=== PATIENT | female | born 1955 | race Caucasian/White ===

== ENCOUNTER 2021-08-06 18:35 | Emergency (ER) | payer MEDICAID ==
[2021-08-06 19:06] LABS: BASOPHILS % (AUTO) 0.4 %; EOSINOPHILS # (AUTO) 0.2 10^3/uL (0.0-0.7); EOSINOPHILS % (AUTO) 2.2 %; HCT - HEMATOCRIT 46.2 % (37.0-47.0); HGB - HEMOGLOBIN 15.4 g/dL (12.0-16.0); LYMPHOCYTES # (AUTO) 2.8 10^3/uL (1.5-3.5); LYMPHOCYTES % (AUTO) 26.5 %; MEAN CORPUSCULAR HEMOGLOBIN 29.3 pg (27.0-31.0); MEAN CORPUSCULAR HGB CONC 33.3 g/dL (32.0-36.0); MEAN PLATELET VOLUME 10.3 fL (7.9-10.8); MONOCYTES # (AUTO) 0.7 10^3/uL (0.0-1.0); MONOCYTES % (AUTO) 6.8 %; NEUTROPHILS # (AUTO) 6.8 10^3/uL (1.5-6.6); NEUTROPHILS % (AUTO) 63.9 %; PLT - PLATELET COUNT 273 10^3/uL (130-450); RED BLOOD COUNT 5.25 10^6/uL (4.20-5.40); RED CELL DISTRIBUTION WIDTH 12.6 % (12.0-15.0); WHITE BLOOD COUNT 10.6 x10^3/uL (4.8-10.8)
[2021-08-06 19:14] LABS: PT - PROTHROMBIN TIME 10.9 secs (9.9-12.6)
[2021-08-06 19:25] LABS: ALBUMIN 4.4 g/dL (3.2-5.5); ALBUMIN/GLOBULIN RATIO 1.3 (1.0-2.2); BILIRUBIN,TOTAL 0.7 mg/dL (0.2-1.0); CALCIUM 9.6 mg/dL (8.5-10.3); CREATININE 0.7 mg/dL (0.4-1.0); POTASSIUM 3.4 mmol/L (3.5-5.0); TOTAL PROTEIN 7.7 g/dL (6.7-8.2)
[2021-08-06] MEDS ORDERED: lisinopriL 5 MG TABLET PO STA (19:28)
--- NOTE | 2021-08-06 19:35 | ED Physician Documentation ---
History of Present Illness - Stated complaint Stated Complaint: HIGH BP, RIGHT LEG PX - Chief complaint Chief Complaint: Ext Problem - Additonal information Additional information: 66-year-old female was referred to the emergency department for evaluation of 5 days right posterior knee and thigh pain. 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 She denies any history of DVT or thrombus in the past. She is not anticoagulated. She reports that she has a history of hypertension but has not taking any meds for about 5 years due to the of her and transition in insurance. She denies chest pain or shortness of air. She is interested in "getting her health on track" Review of Systems Constitutional: denies: Fever, Chills Eyes: reports: Reviewed and negative Nose: reports: Reviewed and negative Throat: reports: Reviewed and negative Cardiac: denies: Chest pain / pressure, Palpitations Respiratory: reports: Reviewed and negative GI: reports: Reviewed and negative : reports: Reviewed and negative Musculoskeletal: reports: Extremity pain PD PAST MEDICAL HISTORY - Past Medical History Cardiovascular: Hypertension Respiratory: None Derm: None - Present Medications Home Medications: Ambulatory Orders Medication Instructions Recorded Confirmed Ibuprofen [Motrin] 600 mg PO Q6H PRN #30 tab 08/06/21 Lisinopril [Zestril] 10 mg PO DAILY #30 tablet 08/06/21 - Allergies Allergies/Adverse Reactions: Allergies Allergy/AdvReac Type Severity Reaction Status Date / Time Penicillins Allergy Unknown Verified 08/06/21 18:47 - Social History Does the pt smoke?: No Smoking Status: Never smoker Does the pt have substance abuse?: No - Immunizations Immunizations are current?: No - POLST Patient has POLST: No PD ED PE EXPANDED - General General: Alert, No acute distress - Cardiac Cardiac: Regular Rate, Radial strong equal, Pedal strong equal, Cap refill < 2 sec. No: Murmur Present - Respiratory Respiratory: Clear to ausultation sherita. No: Distress, Labored - Abdomen Abdomen: Normal Bowel sounds. No: Tender to palpation - Extremities Extremities: Right leg (Tenderness behind the knee without swelling or erythema. Tenderness of the posterior thigh. No calf pain. No lower extremity swelling. 2+ DP pulse. Antalgic gait) Results - Vitals Vitals: Vital Signs - 24 hr 08/06/21 08/06/21 18:41 19:18 Temperature 36.8 C Heart Rate 90 Respiratory 16 20 Rate Blood Pressure 216/125 H 179/83 H O2 Saturation 97 Oxygen O2 Source Room air - Labs Labs: Laboratory Tests 08/06/21 08/06/21 08/06/21 19:00 19:00 19:00 WBC 10.6 RBC 5.25 Hgb 15.4 Hct 46.2 MCV 88.0 MCH 29.3 MCHC 33.3 RDW 12.6 Plt Count 273 MPV 10.3 Neut # (Auto) 6.8 H Lymph # (Auto) 2.8 Hernando # (Auto) 0.7 Eos # (Auto) 0.2 Baso # (Auto) 0.0 Absolute Nucleated RBC 0.00 Nucleated RBC % 0.0 PT 10.9 INR 1.0 Sodium 140 Potassium 3.4 L Chloride 101 Carbon Dioxide 27 Anion Gap 12.0 BUN 18 Creatinine 0.7 Estimated GFR (MDRD) 84 L Glucose 102 H Calcium 9.6 Total Bilirubin 0.7 AST 31 ALT 54 Alkaline Phosphatase 45 Total Protein 7.7 Albumin 4.4 Globulin 3.3 Albumin/Globulin Ratio 1.3 Lipase 32 - Rads (name of study) US DVT Radiology: Final report received (No deep vein thrombosis seen) PD MEDICAL DECISION MAKING - ED course Complexity details: reviewed results, re-evaluated patient, considered differential, d/w patient ED course: 66-year-old female sent to the emergency department for evaluation of right posterior knee and thigh pain in the setting of extensive varicosities. She is here to rule out a DVT. She was also sent for evaluation of hypertension. She has not been on blood pressure medications for about 5 years. Screening labs were unremarkable. Ultrasound DVT was negative she did have pain relief using ibuprofen. She presented markedly hypertensive with a systolic greater than 200. She did receive 10 mg of lisinopril and her blood pressure is 179. She has preserved renal function. She is scheduled to establish with a primary care doctor on 03 September. I will start her on lisinopril until then. Advised as needed ibuprofen for the leg pain. Emergent return precautions were otherwise discussed Departure - Departure Disposition: Home, Self Care Clinical Impression: Right leg pain Hypertension Qualifiers: Hypertension type: unspecified Qualified Code(s): I10 - Essential (primary) hypertension Condition: Stable Record reviewed to determine appropriate education?: Yes Prescriptions: Ibuprofen [Motrin] 600 mg PO Q6H PRN #30 tab PRN Reason: Pain Lisinopril [Zestril] 10 mg PO DAILY #30 tablet Comments: Linda you are seen today in the emergency department for pain behind your right thigh and knee. The ultrasound did not show any blood clots. Your screening labs were checked and your blood counts and kidney function are normal. Your blood pressure is quite elevated and I would recommend that we start treatment today since its been many years since you have been on it. Prescription for lisinopril has been [facility] to the [facility] in [place]. When you see your primary care doctor on the to establish care its important you discuss restratification for coronary artery disease. If you develop any fevers, have uncontrolled vomiting, develop sudden severe chest pain or shortness of air then you should return immediately to the emergency department.
[2021-08-06] MEDS ORDERED: IBUPROFEN 600 MG TABLET PO STA (19:45)
[2021-08-06 21:03] VITALS: BP 180/103
--- NOTE | 2021-08-06 21:13 | Ultrasound Report ---
PROCEDURE: Duplex Ext Veins Right INDICATIONS: right leg swelling/pain TECHNIQUE: Real-time imaging, as well as color and pulse Doppler interrogation, were performed of the lower extr emity deep veins from the inguinal ligament to the popliteal fossa. COMPARISON: None. FINDINGS: The deep veins are normally compressible, and free of intraluminal thrombus. Color and pu lse Doppler demonstrate normal phasic intraluminal flow. There is normal augmentation response to di stal compression maneuver. Ventricles veins noted. Limited visualization of the calf veins. Right kne e anterior joint effusion. IMPRESSION: No right lower extremity DVT identified. Reviewed by: Michael Clarke MD on 08/06/2021 9:11 PM PDT Approved by: Michael Clarke MD on 08/06/2021 9:11 PM PDT Station ID: [id number]
== END 2021-08-06 21:03 | disposition home or self-care (01) ==
LOC: ED 18:35
DX: I10 Essential (primary) hypertension (principal); M79.651 Pain in right thigh; M25.561 Pain in right knee
CPT/HCPCS: 36415; 80053; 83690; 85025; 85610; 93971; 99283; 99284; A9270

== ENCOUNTER 2021-08-19 08:00 | Outpatient (CLI) | payer MEDICAID ==
--- NOTE | 2021-08-19 16:01 | XRAY Report ---
PROCEDURE: Knee 4 View RT INDICATIONS: RIGHT KNEE PAIN TECHNIQUE: 4 views of the right knee(s) were acquired. COMPARISON: None. FINDINGS: Bones: Mild tricompartment joint space narrowing and osteophytosis. No fractures or dislocations. N o suspicious bony lesions. Soft tissues: No joint effusion. No suspicious soft tissue calcifications. IMPRESSION: Mild tricompartmental osteoporosis. Reviewed by: Donato Andres MD on 08/19/2021 4:00 PM PDT Approved by: Donato Andres MD on 08/19/2021 4:00 PM PDT Station ID: [id number]
== END 2021-08-19 23:59 | disposition home or self-care (01) ==
LOC: DI.S 08:00
PROVIDERS: ATTEND Physician Assistant
DX: M17.11 Unilateral primary osteoarthritis, right knee (principal)

== ENCOUNTER 2021-10-22 13:03 | Outpatient (CLI) | payer MEDICAID ==
--- NOTE | 2021-10-22 14:33 | DEXA Report ---
PROCEDURE: Dexa Spine and/or Hip INDICATIONS: POST MENOPAUSAL TECHNIQUE: Dual energy x-ray absorptiometry (DXA) was performed on a Five9 System. Regions measur ed are the AP Spine, femoral neck, and if needed forearm. COMPARISON: None. FINDINGS: Lumbar Spine: Bone Mineral Density 1.249 g/cm/cm,T score 0.1, normal. Left Hip: Bone Mineral Density 1.030 g/cm/cm,T score 0.2, normal. Left Femoral Neck: Bone Mineral Density 0.864 g/cm/cm, T score -1.3, Osteopenia. (T score greater or equal to -1.0: NORMAL) (T score from -1.1 to -2.4: OSTEOPENIA) (T score less than or equal to -2.5 to: OSTEOPOROSIS) Impression: Based on WHO criteria, the patient is osteopenic. Patients with diagnosis of osteoporosis or osteopenia should have regular bone mineral density assess ment. For those eligible for Medicare, routine testing is allowed once every 2 years. Testing frequ ency can be increased for patients who have rapidly progressing disease or for those who are receivin g medical therapy to restore bone mass. Reviewed by: Jeff Dietz MD on 10/22/2021 2:32 PM PDT Approved by: Jeff Dietz MD on 10/22/2021 2:32 PM PDT Station ID: [id number]
== END 2021-10-22 13:04 | disposition home or self-care (01) ==
LOC: DI 13:03
PROVIDERS: ATTEND Nurse Practitioner Family
DX: M85.88 Other specified disorders of bone density and structure, other site (principal); Z78.0 Asymptomatic menopausal state

== ENCOUNTER 2021-10-22 13:04 | Outpatient (CLI) | payer MEDICAID ==
--- NOTE | 2021-10-25 08:07 | Mammography Report ---
BILATERAL DIGITAL SCREENING MAMMOGRAM 3D/2D: 10/22/2021 CLINICAL: Routine screening. No prior exams were available for comparison. There are scattered fibroglandular elements in both br easts. No significant masses, calcifications, or other findings are seen in either breast. IMPRESSION: NEGATIVE There is no mammographic evidence of malignancy. A 1 year screening mammogram is recommended. Based on the Tyrer Cuzick model (a risk assessment model) the patients lifetime risk is 6.2% and her 10 year risk is 2.8%. According to the ACR, ACS, and NCCN guidelines, an annual breast MRI exam oracio g with mammogram is recommended if the patients lifetime risk is 20% or greater. This exam was interpreted at Station ID: [id number]. NOTE: For mammograms, a report in lay terms will be sent to the patient. Approximately 15% of breast malignancies will not be visualized mammographically. In the management of a palpable breast mass, a negative mammogram must not discourage biopsy of a clinically suspicious lesion. Electronically Signed By: Michael Clarke M.D. slc/penrad:10/22/2021 17:57:55 ACR BI-RADS Category 1: Negative 3341F PARENCHYMAL PATTERN: (A) - The breast(s) demonstrate(s) scattered fibroglandular densities. BI-RADS CATEGORY: (1) - 1 RECOMMENDATION: (ANNUAL) - Recommend routine annual screening mammography. [id number] 1 year screening LATERALITY: (B)
== END 2021-10-22 13:05 | disposition home or self-care (01) ==
LOC: DI 13:04
PROVIDERS: ATTEND Nurse Practitioner Family
DX: Z12.31 Encounter for screening mammogram for malignant neoplasm of breast (principal)

== ENCOUNTER 2021-12-21 14:33 | Outpatient (CLI) | payer MEDICAID ==
[2021-12-21 14:51] LABS: BASOPHILS # (AUTO) 0.1 10^3/uL (0.0-0.1); BASOPHILS % (AUTO) 0.5 %; EOSINOPHILS # (AUTO) 0.2 10^3/uL (0.0-0.7); EOSINOPHILS % (AUTO) 1.9 %; HCT - HEMATOCRIT 40.1 % (37.0-47.0); HGB - HEMOGLOBIN 13.6 g/dL (12.0-16.0); LYMPHOCYTES # (AUTO) 3.2 10^3/uL (1.5-3.5); MEAN CORPUSCULAR HEMOGLOBIN 30.1 pg (27.0-31.0); MEAN CORPUSCULAR HGB CONC 33.9 g/dL (32.0-36.0); MEAN CORPUSCULAR VOLUME 88.7 fL (81.0-99.0); MEAN PLATELET VOLUME 10.1 fL (7.9-10.8); MONOCYTES # (AUTO) 0.7 10^3/uL (0.0-1.0); MONOCYTES % (AUTO) 6.9 %; NEUTROPHILS # (AUTO) 6.4 10^3/uL (1.5-6.6); NEUTROPHILS % (AUTO) 60.4 %; PLT - PLATELET COUNT 253 10^3/uL (130-450); RED BLOOD COUNT 4.52 10^6/uL (4.20-5.40); RED CELL DISTRIBUTION WIDTH 12.9 % (12.0-15.0); WHITE BLOOD COUNT 10.6 x10^3/uL (4.8-10.8)
== END 2021-12-21 14:34 | disposition home or self-care (01) ==
LOC: LAB 14:33
PROVIDERS: ATTEND Nurse Practitioner Family
DX: G62.9 Polyneuropathy, unspecified (principal)
CPT/HCPCS: 36415; 85025